=== PATIENT | male | born 1955 | race Caucasian/White ===

== ENCOUNTER 2016-09-30 11:04 | Emergency (ER) | payer BC ==
[2016-09-30 12:54] VITALS: BP 143/87
--- NOTE | 2016-09-30 13:08 | UC ---
Hand/Wrist HPI - HPI Summary HPI Summary: Was walking behind [employer] trailer one month ago when apolonia popped it into gear, suddenly moving machine into pt's R upheld fist. Since then had pain and swelling in R 5th knuckle. Has not been evaluated for this injury prior to today. - History Of Current Complaint Chief Complaint: UCUpperExtremity Stated Complaint: HAND COMPLAINT Time Seen by Provider: 09/30/16 12:52 Hx Obtained From: Patient ?: No Onset/Duration: Sudden Onset Severity Initially: Moderate Severity Currently: Mild Character Of Pain: Dull, Aching, Stiffness Aggravating Factor(s): Movement, Other - shaking hands Alleviating: Rest Associated Signs And Symptoms: Positive: Swelling Related History: Dominant Hand Right - Allergies/Home Medications Allergies/Adverse Reactions: Allergies Allergy/AdvReac Type Severity Reaction Status Date / Time Penicillins Allergy Hives Verified 09/30/16 12:54 PMH/Surg Hx/FS Hx/Imm Hx Endocrine History Of: Denies: Diabetes, Thyroid Disease Cardiovascular History Of: Denies: Cardiac Disorders, Hypertension Respiratory History Of: Denies: COPD, Asthma GI/ History Of: Reports: Kidney Stones Denies: Ulcer - Surgical History Surgical History: Yes Surgery Procedure, Year, and Place: right elbow surgery- Late - Family History Known Family History: Positive: Hypertension - Social History Lives: With Family Alcohol Use: None Substance Use Type: None Smoking Status (MU): Never Smoked Tobacco - Immunization History Most Recent Influenza Vaccination: none Most Recent Tetanus Shot: apr 2014 Most Recent Pneumonia Vaccination: none Review of Systems Constitutional: Negative Skin: Negative Eyes: Negative ENT: Negative Respiratory: Negative Cardiovascular: Negative Gastrointestinal: Negative Genitourinary: Negative Motor: Negative Neurovascular: Negative Musculoskeletal: Decreased ROM, Edema, Other: - tender R 5th MCP Neurological: Negative Psychological: Negative All Other Systems Reviewed And Are Negative: Yes Physical Exam Triage Information Reviewed: Yes Appearance: Well-Appearing, No Pain Distress, Well-Nourished Vital Signs: Initial Vital Signs Temp 98.1 F 09/30/16 12:48 Pulse 73 09/30/16 12:48 Resp 20 09/30/16 12:48 BP 143/87 09/30/16 12:48 Pulse Ox 99 09/30/16 12:48 Vital Signs Reviewed: Yes Eye Exam: Normal Eyes: Positive: Conjunctiva Clear ENT Exam: Normal ENT: Positive: Normal ENT inspection, Hearing grossly normal, Pharynx normal, TMs normal Dental Exam: Normal Neck exam: Normal Neck: Positive: Supple, Nontender Respiratory Exam: Normal Respiratory: Positive: Chest non-tender, Lungs clear, Normal breath sounds, No respiratory distress, No accessory muscle use Cardiovascular Exam: Normal Cardiovascular: Positive: RRR, No Murmur Musculoskeletal: Positive: ROM Limited @ - R interventional radiology rn, Other: - tender, mild swelling over R 5th MCP Neurological Exam: Normal Neurological: Positive: Alert Psychological Exam: Normal Skin Exam: Normal Hand/Wrist Course/Dx - Differential Dx/Diagnosis Provider Diagnoses: R 5th MCP sprain. Elevated blood pressure due to pain Discharge - Discharge Plan Condition: Stable Disposition: HOME Patient Education Materials: Finger Sprain (ED) Referrals: Jermaine Johnson MD [Primary Care Provider] - Guillermo Mckeon MD [Medical Doctor] - 1 Week Additional Instructions: Avoid activities that cause pain. Please follow up with an orthopedist to determine if you need further treatment like physical therapy or surgery.
--- NOTE | 2016-09-30 13:21 | RAD ---
INDICATION: Trauma to right hand 4 months ago. Pain COMPARISON: None TECHNIQUE: AP and lateral views were obtained. FINDINGS: There is no acute bony change. There is apparent periarticular erosive change about the fourth and fifth metacarpals at the MCP joints. An inflammatory arthropathy to include gout is a differential consideration in the appropriate clinical setting. There is also underlying osteoarthritis with interphalangeal and metacarpophalangeal joint space narrowing.. IMPRESSION: NO ACUTE BONY FINDINGS. UNDERLYING OSTEOARTHRITIS WITH POSSIBLE INFLAMMATORY ARTHROPATHY.
== END 2016-09-30 13:34 | disposition home or self-care (01) ==
LOC: UCEAST 11:04
DX: S63.656A Sprain of metacarpophalangeal joint of right little finger, initial encounter (principal); R03.0 Elevated blood-pressure reading, without diagnosis of hypertension; R52 Pain, unspecified; W22.8XXA Striking against or struck by other objects, initial encounter; Z88.0 Allergy status to penicillin; Z87.442 Personal history of urinary calculi
CPT/HCPCS: 99212; G0463

== ENCOUNTER 2018-12-04 15:40 | Emergency (ER) | payer MEDICARE ==
[2018-12-04 16:29] VITALS: BP 126/89
--- NOTE | 2018-12-04 16:54 | UC ---
Lower Extremity/Ankle HPI - HPI Summary HPI Summary: 63 yo male heard a pop right lat foot getting in a boat hurts to ambulate occurred yesterday - History of Current Complaint Chief Complaint: UCLowerExtremity Stated Complaint: FOOT PAIN Time Seen by Provider: 12/04/18 16:30 Hx Obtained From: Patient Onset/Duration: Sudden Onset, Lasting Hours Severity Initially: Moderate Severity Currently: Moderate Pain Intensity: 7 - with wt bearing Pain Scale Used: 0-10 Numeric Aggravating Factor(s): Standing, Ambulation Alleviating Factor(s): Rest Able to Bear Weight: Yes Feet (Multiple View): 1 - tender and slightly swollen here - Allergies/Home Medications Allergies/Adverse Reactions: Allergies Allergy/AdvReac Type Severity Reaction Status Date / Time Penicillins Allergy Hives Verified 12/04/18 16:30 PMH/Surg Hx/FS Hx/Imm Hx Previously Healthy: Yes - Surgical History Surgical History: Yes Surgery Procedure, Year, and Place: right elbow surgery- Late . severed quad tendon repair 2017 - Family History Known Family History: Positive: Hypertension - Social History Alcohol Use: None Substance Use Type: None Smoking Status (MU): Never Smoked Tobacco - Immunization History Most Recent Influenza Vaccination: none Most Recent Tetanus Shot: apr 2014 Most Recent Pneumonia Vaccination: none Review of Systems All Other Systems Reviewed And Are Negative: Yes Constitutional: Positive: Negative Skin: Positive: Negative Eyes: Positive: Negative ENT: Positive: Negative Respiratory: Positive: Negative Cardiovascular: Positive: Negative Gastrointestinal: Positive: Negative Genitourinary: Positive: Negative Motor: Positive: Negative Neurovascular: Positive: Negative Musculoskeletal: Positive: Arthralgia - R foot Neurological: Positive: Negative Psychological: Positive: Negative Physical Exam Triage Information Reviewed: Yes Appearance: Well-Appearing, No Pain Distress, Well-Nourished Vital Signs: Initial Vital Signs Temp 98.3 F 12/04/18 16:21 Pulse 98 12/04/18 16:21 Resp 12 12/04/18 16:21 BP 126/89 12/04/18 16:21 Pulse Ox 98 12/04/18 16:21 Vital Signs Reviewed: Yes Eyes: Positive: Conjunctiva Clear ENT: Positive: Hearing grossly normal. Negative: Nasal congestion, Nasal drainage Neck: Positive: Supple, Nontender Respiratory: Positive: Lungs clear, Normal breath sounds, No respiratory distress, No accessory muscle use Cardiovascular: Positive: RRR, No Murmur Musculoskeletal: Positive: ROM Intact, Edema @ - and tenderness near base of 5th Neurological: Positive: Alert, Muscle Tone Normal Psychological Exam: Normal Skin Exam: Normal Lower Extremity Course/Dx - Differential Dx/Diagnosis Provider Diagnosis: Right foot sprain Discharge - Sign-Out/Discharge Documenting (check all that apply): Patient Departure All imaging exams completed and their final reports reviewed: Yes - Discharge Plan Condition: Stable Disposition: HOME Patient Education Materials: Foot Sprain (ED), Post Surgical Shoe (ED) Referrals: Jermaine Johnson MD [Primary Care Provider] - Additional Instructions: see your orthopedist in 1-2 weeks if not better ice ibuprofen - Billing Disposition and Condition Condition: STABLE Disposition: Home
== END 2018-12-04 17:40 | disposition home or self-care (01) ==
LOC: UCEAST 15:40
DX: S93.601A Unspecified sprain of right foot, initial encounter (principal); X50.9XXA Other and unspecified overexertion or strenuous movements or postures, initial encounter; Y92.9 Unspecified place or not applicable; Z88.0 Allergy status to penicillin
CPT/HCPCS: 99211; G0463

== ENCOUNTER 2019-02-04 14:18 | Emergency (ER) | payer MEDICARE ==
[2019-02-04] MEDS ORDERED: Ketorolac INJ* 30 MG/ML 1 ML VIAL IV ONE (14:33)
[2019-02-04] MEDS ORDERED: Ondansetron INJ* 2 MG/ML VIAL IV ONE (14:34)
[2019-02-04] MEDS ORDERED: Morphine 4 MG/ML VIAL (1 ml) 4 MG/ML VIAL IV ONE (14:34)
[2019-02-04 14:54] LABS: ABS Basophils 0.1 10^3/ul (0-0.2); ABS Eosinophils 0.1 10^3/ul (0-0.6); ABS Lymphocytes 2.6 10^3/ul (1.0-4.8); ABS Monocytes 0.8 10^3/ul (0-0.8); ABS Neutrophils 7.2 10^3/ul (1.5-7.7); Eosinophil % 0.5 %; Hematocrit 46 % (42-52); Hemoglobin 15.3 g/dL (14.0-18.0); Lymphocyte % 23.9 %; Mean Corpuscular HGB Conc 34 g/dL (31-36); Mean Corpuscular Hemoglobin 31 pg (27-31); Mean Corpuscular Volume 93 fL (80-94); Mean Platelet Volume 8.4 fL (7.4-10.4); Platelet Count 255 10^3/uL (150-450); Red Blood Count 4.92 10^6 /uL (4.18-5.48); Red Cell Distribution Width 14 % (10-15); White Blood Count 10.7 10^3/uL (3.5-10.8)
[2019-02-04] MEDS ORDERED: NS 0.9% 1000 ML** 1,000 ML IV ONE (15:01)
[2019-02-04 15:04] LABS: Urine Appearance Clear; Urine Bacteria Absent (Absent); Urine Bilirubin Negative (Negative); Urine Blood 2+ (Negative); Urine Color Amber; Urine Glucose Negative (Negative); Urine Ketones Negative (Negative); Urine Nitrite Negative (Negative); Urine Protein Negative (Negative); Urine Red Blood Cell 2+(6-10/hpf) (Absent); Urine Specific Gravity 1.026 (1.010-1.030); Urine Urobilinogen Negative (Negative); Urine White Blood Cell Trace(0-5/hpf) (Absent)
[2019-02-04 15:09] LABS: Albumin 4.1 g/dL (3.2-5.2); Albumin/Globulin Ratio 1.6 (1-3); BUN/Creatinine Ratio 17.6 (8-20); C Reactive Protein 1.88 mg/L (<8.01); Calcium 8.5 mg/dL (8.6-10.3); EGFR African American 88.7 (>60); EGFR Non-African American 73.3 (>60); Globulin 2.6 g/dL (2-4); Total Bilirubin 0.5 mg/dL (0.2-1.0); Total Protein 6.7 g/dL (6.4-8.9)
[2019-02-04 15:53] VITALS: BP 137/73
--- NOTE | 2019-02-05 13:01 | ED ---
Abdominal Pain/Male - HPI Summary HPI Summary: This patient is a 63-year-old male with history of kidney stones, ureteroscopy and stent placement 4 years ago to the left flank now presenting to the ED with pain to the right flank, acute onset approximately 45 minutes ago, severe 10/ 10. Pain is into the right flank radiating around into the RLQ, denying any urinary symptoms. He denies any hematuria. Pain is worst of life. Denies any chest pain, shortness of breath, headache or other symptoms. On arrival into the ED, he is tearful and writhing in pain. Requesting pain medications on arrival. Dr. Flood is urologist. - History of Current Complaint Chief Complaint: EDFlankPain Stated Complaint: FLANK PAIN PER PT Time Seen by Provider: 02/04/19 14:29 Hx Obtained From: Patient Onset/Duration: Sudden Onset Timing: Constant Severity Initially: Severe Severity Currently: Severe Pain Intensity: 0 Pain Scale Used: 0-10 Numeric Location: Flank Radiates: Yes Radiates to: RLQ Character: Sharp, Cramping Aggravating Factor(s): Nothing Alleviating Factor(s): Nothing Associated Signs And Symptoms: Positive: Negative - Risk Factors Testicular Torsion: Negative Cardiac Risk Factors: Negative - Allergies/Home Medications Allergies/Adverse Reactions: Allergies Allergy/AdvReac Type Severity Reaction Status Date / Time Penicillins Allergy Hives Verified 12/04/18 16:30 Home Medications: Home Medications Saw [place] Fruit [Saw [place]] 450 mg PO DAILY 02/04/19 [History Confirmed ] PMH/Surg Hx/FS Hx/Imm Hx Previously Healthy: Yes Endocrine/Hematology History: Denies: Hx Diabetes, Hx Thyroid Disease Cardiovascular History: Denies: Hx Hypertension Respiratory History: Denies: Hx Asthma, Hx Chronic Obstructive Pulmonary Disease (COPD) GI History: Denies: Hx Ulcer History: Reports: Hx Kidney Stones Sensory History: Reports: Hx Contacts or Glasses - for driving/reading Opthamlomology History: Reports: Hx Contacts or Glasses - for driving/reading - Surgical History Surgery Procedure, Year, and Place: right elbow surgery- Late . severed quad tendon repair 2017 Hx Anesthesia Reactions: No - Immunization History Hx Pertussis Vaccination: No Immunizations Up to Date: Yes Infectious Disease History: No Infectious Disease History: Reports: Traveled Outside the [place] in Last 30 Days Denies: Hx Hepatitis, Hx Human Immunodeficiency Virus (HIV) - Family History Known Family History: Positive: Hypertension - Social History Occupation: Employed Full-time Lives: With Family Alcohol Use: Rare Hx Substance Use: No Substance Use Type: Reports: None Hx Tobacco Use: No Smoking Status (MU): Never Smoked Tobacco Review of Systems Constitutional: Negative Negative: Fever, Chills, Fatigue, Skin Diaphoresis Negative: Palpitations, Chest Pain Negative: Shortness Of Breath, Cough Positive: Abdominal Pain, Nausea. Negative: Vomiting, Diarrhea Genitourinary: Negative Positive: no symptoms reported, see HPI Negative: Arthralgia, Myalgia Skin: Negative Neurological: Negative All Other Systems Reviewed And Are Negative: Yes Physical Exam Triage Information Reviewed: Yes Vital Signs On Initial Exam: Initial Vitals Temp Pulse Resp BP Pulse Ox 96.1 F 50 18 160/80 100 02/04/19 14:23 02/04/19 14:23 02/04/19 14:23 02/04/19 14:23 02/04/19 14:23 Vital Signs Reviewed: Yes Appearance: Positive: Well-Nourished, Pain Distress Skin: Positive: Warm, Skin Color Reflects Adequate Perfusion Head/Face: Positive: Normal Head/Face Inspection Eyes: Positive: EOMI, OLU, Conjunctiva Clear Neck: Positive: Supple, No Lymphadenopathy Respiratory/Lung Sounds: Positive: Clear to Auscultation, Breath Sounds Present Cardiovascular: Positive: RRR, Pulses are Symmetrical in both Upper and Lower Extremities Abdomen Description: Positive: Nontender, Soft, CVA Tenderness (R) Bowel Sounds: Positive: Present Musculoskeletal: Positive: Normal, Strength/ROM Intact Neurological: Positive: Speech Normal Psychiatric: Positive: Affect/Mood Appropriate Diagnostics - Vital Signs Vital Signs Temp Pulse Resp BP Pulse Ox 02/04/19 15:53 98.5 F 65 16 137/73 97 02/04/19 14:48 16 02/04/19 14:23 96.1 F 50 18 160/80 100 - Laboratory Lab Results: Lab Results 02/04/19 02/04/19 02/04/19 Range/Units 14:26 14:43 14:43 WBC 10.7 (3.5-10.8) 10^3/uL RBC 4.92 (4.18-5.48) 10^6 /uL Hgb 15.3 (14.0-18.0) g/dL Hct 46 (42-52) % MCV 93 (80-94) fL MCH 31 (27-31) pg MCHC 34 (31-36) g/dL RDW 14 (10-15) % Plt Count 255 (150-450) 10^3/uL MPV 8.4 (7.4-10.4) fL Neut % (Auto) 67.0 % Lymph % (Auto) 23.9 % [place] % (Auto) 7.9 % Eos % (Auto) 0.5 % Baso % (Auto) 0.7 % Absolute Neuts (auto) 7.2 (1.5-7.7) 10^3/ul Absolute Lymphs (auto) 2.6 (1.0-4.8) 10^3/ul Absolute Monos (auto) 0.8 (0-0.8) 10^3/ul Absolute Eos (auto) 0.1 (0-0.6) 10^3/ul Absolute Basos (auto) 0.1 (0-0.2) 10^3/ul Absolute Nucleated RBC 0.0 10^3/ul Nucleated RBC % 0.0 Sodium 139 (135-145) mmol/L Potassium 4.0 (3.5-5.0) mmol/L Chloride 108 (101-111) mmol/L Carbon Dioxide 27 (22-32) mmol/L Anion Gap 4 (2-11) mmol/L BUN 18 (6-24) mg/dL Creatinine 1.02 (0.67-1.17) mg/dL Est GFR ( Amer) 88.7 (>60) Est GFR (Non-Af Amer) 73.3 (>60) BUN/Creatinine Ratio 17.6 (8-20) Glucose 162 H (70-100) mg/dL Lactic Acid (0.5-2.0) mmol/L Calcium 8.5 L (8.6-10.3) mg/dL Magnesium 2.0 (1.9-2.7) mg/dL Total Bilirubin 0.50 (0.2-1.0) mg/dL AST 22 (13-39) U/L ALT 19 (7-52) U/L Alkaline Phosphatase 74 (34-104) U/L C-Reactive Protein 1.88 (<8.01) mg/L Total Protein 6.7 (6.4-8.9) g/dL Albumin 4.1 (3.2-5.2) g/dL Globulin 2.6 (2-4) g/dL Albumin/Globulin Ratio 1.6 (1-3) Lipase 30 (11.0-82.0) U/L Urine Color Ese Urine Appearance Clear Urine pH 6.0 (5-9) Ur Specific [place] 1.026 (1.010-1.030) Urine Protein Negative (Negative) Urine Ketones Negative (Negative) Urine Blood 2+ A (Negative) Urine Nitrate Negative (Negative) Urine Bilirubin Negative (Negative) Urine Urobilinogen Negative (Negative) Ur Leukocyte Esterase Negative (Negative) Urine WBC (Auto) Trace(0-5/hpf) (Absent) Urine RBC (Auto) 2+(6-10/hpf) A (Absent) Urine Bacteria Absent (Absent) Urine Glucose Negative (Negative) 02/04/19 Range/Units 14:43 WBC (3.5-10.8) 10^3/uL RBC (4.18-5.48) 10^6 /uL Hgb (14.0-18.0) g/dL Hct (42-52) % MCV (80-94) fL MCH (27-31) pg MCHC (31-36) g/dL RDW (10-15) % Plt Count (150-450) 10^3/uL MPV (7.4-10.4) fL Neut % (Auto) % Lymph % (Auto) % [place] % (Auto) % Eos % (Auto) % Baso % (Auto) % Absolute Neuts (auto) (1.5-7.7) 10^3/ul Absolute Lymphs (auto) (1.0-4.8) 10^3/ul Absolute Monos (auto) (0-0.8) 10^3/ul Absolute Eos (auto) (0-0.6) 10^3/ul Absolute Basos (auto) (0-0.2) 10^3/ul Absolute Nucleated RBC 10^3/ul Nucleated RBC % Sodium (135-145) mmol/L Potassium (3.5-5.0) mmol/L Chloride (101-111) mmol/L Carbon Dioxide (22-32) mmol/L Anion Gap (2-11) mmol/L BUN (6-24) mg/dL Creatinine (0.67-1.17) mg/dL Est GFR ( Amer) (>60) Est GFR (Non-Af Amer) (>60) BUN/Creatinine Ratio (8-20) Glucose (70-100) mg/dL Lactic Acid 1.6 (0.5-2.0) mmol/L Calcium (8.6-10.3) mg/dL Magnesium (1.9-2.7) mg/dL Total Bilirubin (0.2-1.0) mg/dL AST (13-39) U/L ALT (7-52) U/L Alkaline Phosphatase (34-104) U/L C-Reactive Protein (<8.01) mg/L Total Protein (6.4-8.9) g/dL Albumin (3.2-5.2) g/dL Globulin (2-4) g/dL Albumin/Globulin Ratio (1-3) Lipase (11.0-82.0) U/L Urine Color Urine Appearance Urine pH (5-9) Ur Specific [place] (1.010-1.030) Urine Protein (Negative) Urine Ketones (Negative) Urine Blood (Negative) Urine Nitrate (Negative) Urine Bilirubin (Negative) Urine Urobilinogen (Negative) Ur Leukocyte Esterase (Negative) Urine WBC (Auto) (Absent) Urine RBC (Auto) (Absent) Urine Bacteria (Absent) Urine Glucose (Negative) Result Diagrams: 02/04/19 14:43 02/04/19 14:43 Lab Statement: Any lab studies that have been ordered have been reviewed, and results considered in the medical decision making process. Abdominal Pain Male Course/Dx - Course Course Of Treatment: Course of treatment, the patient's evaluated for right- sided flank and abdominal pain. On arrival in the ED, patient is given morphine , Toradol and Zofran. He was also given fluids.Labs obtained and are unremarkable. 2+ blood in the urine. CT abdomen and pelvis obtained: Right hydronephrosis and hydroureter with a 0.5 cm calculus in the distal right ureter. The gallbladder demonstrate calcified gallstones. Discussed case with Dr. Jones who recommends straining the urine, pain medication and f/u in office. - Diagnoses Differential Diagnosis/HQI/PQRI: Renal Colic Provider Diagnoses: Kidney stones - Provider Notifications Discussed Care Of Patient With: Rey Jones Instructed by Provider To: Have Pt Call For Appt. Discharge ED - Sign-Out/Discharge Documenting (check all that apply): Patient Departure Patient Received Moderate/Deep Sedation with Procedure: No - Discharge Plan Condition: Stable Disposition: HOME Prescriptions: oxyCODONE TAB* [Roxycodone TAB 5 mg*] 5 mg PO Q4H PRN #15 tab MDD 6 PRN Reason: Pain - Mild Patient Education Materials: Kidney Stones (ED) Referrals: Jermaine Johnson MD [Primary Care Provider] - Additional Instructions: Call Dr. Flood's office in the morning for a follow up If you continue to have pain - return to the ED or follow-up with urology Pain medication was given to you, uses only as needed Strain urine until passage of stone - Billing Disposition and Condition Condition: STABLE Disposition: Home
== END 2019-02-04 15:45 | disposition home or self-care (01) ==
LOC: ED 14:18
DX: N13.2 Hydronephrosis with renal and ureteral calculous obstruction (principal); Z88.0 Allergy status to penicillin; Z79.899 Other long term (current) drug therapy
CPT/HCPCS: 36415; 74176; 80053; 81003; 81015; 83605; 83690; 83735; 85025; 86140; 87086; 96361; 96374; 96375; 99283; J1885; J2270; J2405

== ENCOUNTER 2019-05-31 10:44 | Emergency (ER) | payer MEDICARE ==
--- OUTSIDE RECORDS SUMMARY | 2019-05-31 11:18 | XMS REPORT | Continuity of Care Document ---
:1955 External Reference #:[id number] Author Name Tommy Dorsey M.D. (transmitted by agent of provider Jannette Garcia) Address [address] [place] [id number] Care Team Providers Name Role Phone Eliel Johnson M.D. Care Team Information Development Analyst [phone] Jermanie Johnson M.D. 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 Social History Type Date Description Comments Sex Unknown ETOH Use Rarely consumes alcohol Tobacco Use Reviewed: 04/02/19 Patient has never smoked Smoking Status Reviewed: 04/02/19 Patient has never smoked Allergies, Adverse Reactions, Alerts Active Allergies Reaction Severity Comments Date Penicillins hives 02/16/2015 Inactive Allergies NKDA 02/16/2015 Medications Active Medications SIG Qnty Indications Ordering Provider Date Vitamin C qd Unknown Vitamin E qd Unknown Vitamin D qd Unknown Vitamin B-12 qd Unknown Fish Oil qd Unknown Glucosamine-Chondroitin qd Unknown Coq-10 qd Unknown Immunizations Description No Information Available Vital Signs Date Vital Result Comment 04/02/2019 1:01pm BP Systolic Right Arm 140 mmHg BP Diastolic Right Arm 80 mmHg 09/23/2017 2:09pm BP Systolic Left Arm 130 mmHg BP Diastolic Left Arm 80 mmHg Height 69 inches 5'9" Weight 240.00 lb Weight 108.864 kg BMI (Body Mass Index) 35.4 kg/m2 Results Test Acquired Date Facility Test Result H/L Range Note Xray 04/02/2019 Main Office Arterial Ultrasound Lower <pending> [phone] Extremity Right Procedures Date Code Description Status 04/02/2019 33510 Duplex Scan Lower Extremity, Follow-Up Or Limited Completed Medical Devices Description No Information Available Encounters Description No Information Available Assessments Date Code Description Provider 04/02/2019 I72.4 Aneurysm of artery of lower extremity Vascular Lab Plan of Treatment 04/02/2019 - Tommy Dorsey M.D.New Xrays:Arterial Ultrasound Lower Extremity Right, Ordered: 04/02/19Follow up:2 YEAR OV/US/ LE ARTERIAL RIGHT / Functional Status Description No Information Available Mental Status Description No Information Available Referrals Description No Information Available
--- NOTE | 2019-05-31 12:00 | UC ---
Ear Complaint HPI - HPI Summary HPI Summary: 63-year-old male presents with complaints of right ear pain with diminished hearing 2 weeks. States he noted that the ear canal was red and inflamed. He has been trying to treat at home by using an awmp-[id number]-jdrxaru eardrop and irrigating the ear canal. Denies fever, chills, URI symptoms, tinnitus, vertigo , or ear drainage. - History of Current Complaint Chief Complaint: UCEar Stated Complaint: EAR PAIN Time Seen by Provider: 05/31/19 11:30 Hx Obtained From: Patient Pain Intensity: 1 - Allergies/Home Medications Allergies/Adverse Reactions: Allergies Allergy/AdvReac Type Severity Reaction Status Date / Time Penicillins Allergy Hives Verified 05/31/19 11:26 PMH/Surg Hx/FS Hx/Imm Hx Previously Healthy: Yes - Denies significant PMH - Surgical History Surgical History: Yes Surgery Procedure, Year, and Place: right elbow surgery- Late s. severed quad tendon repair 2016 - Family History Known Family History: Positive: Hypertension - Social History Occupation: Employed Full-time Lives: With Family Alcohol Use: Rare Substance Use Type: None Smoking Status (MU): Never Smoked Tobacco - Immunization History Most Recent Influenza Vaccination: none Most Recent Tetanus Shot: apr 2014 Most Recent Pneumonia Vaccination: none Review of Systems All Other Systems Reviewed And Are Negative: Yes Constitutional: Negative: Fever, Chills Eyes: Negative: Drainage, Eye Redness ENT: Positive: Ear Ache. Negative: Sore Throat, Nasal Discharge, Sinus Congestion, Sinus Pain/Tenderness Respiratory: Negative: Cough Cardiovascular: Positive: Negative Gastrointestinal: Positive: Negative Genitourinary: Positive: Negative Musculoskeletal: Positive: Negative Neurological: Positive: Negative Is Patient Immunocompromised?: No Physical Exam - Summary Physical Exam Summary: GENERAL APPEARANCE: Alert and cooperative obese adult male who appears to be in no acute distress. EYES: Conjunctiva clear. No drainage. EARS: Left external auditory canal and tympanic membranes clear. Right external auditory canal erythematous and inflamed. TM partially obscured but no erythema noted. NOSE: No nasal discharge. THROAT: Pharynx normal No tonsilar inflammation, swelling, exudate, or lesions. Uvula midline. NECK: Neck supple, non-tender without lymphadenopathy. CARDIAC: Normal S1 and S2. No S3, S4 or murmurs. Rhythm is regular. There is no peripheral edema, cyanosis or pallor. Extremities are warm and well perfused. Capillary refill is less than 2 seconds. Peripheral pulses intact. LUNGS: Clear to auscultation without rales, rhonchi, wheezing or diminished breath sounds. ABDOMEN: Positive bowel sounds. Soft, nondistended, nontender. No guarding or rebound. No masses or hepatosplenomegally. MUSKULOSKELETAL: ROM intact to all extremities. No joint erythema or tenderness. Normal muscular development. Normal gait. SKIN: Skin normal color, texture and turgor with no lesions or eruptions. Triage Information Reviewed: Yes Vital Signs: Initial Vital Signs Temp 97.3 F 05/31/19 11:23 Pulse 73 05/31/19 11:23 Resp 18 05/31/19 11:23 BP 151/96 05/31/19 11:23 Pulse Ox 98 05/31/19 11:23 Vital Signs Reviewed: Yes Ear Complaint Course/Dx - Course Course Of Treatment: 63-year-old male presents with complaints of right ear pain with diminished hearing 2 weeks. States he noted that the ear canal was red and inflamed. He has been trying to treat at home by using an afpy-iit-axaokez eardrop and irrigating the ear canal. Denies fever, chills, URI symptoms, tinnitus, vertigo , or ear drainage. Afebrile. Hypertensive his vital signs stable. On exam it was noted that the patient's right external auditory canal erythematous and inflamed. TM partially obscured but no erythema noted. Remainder of exam was unremarkable. Will treat for a right otitis externa with ciprofloxacin dexamethasone otic drops 4 drops into the affected here twice daily 7 days. He is to follow-up with his primary care provider in 5-7 days if symptoms are not improving. Anticipatory guidance and warning symptoms were reviewed with the patient. Verbalizes understanding and agrees with plan of care. - Differential Dx/Diagnosis Differential Diagnosis/HQI/PQRI: Cerumen Impaction, Otitis Externa, Otitis Media , Perforated TM Provider Diagnosis: Right otitis externa Discharge ED - Sign-Out/Discharge Documenting (check all that apply): Patient Departure All imaging exams completed and their final reports reviewed: No Studies - Discharge Plan Condition: Stable Disposition: HOME Prescriptions: Ciproflox/Dexameth OTIC.SUSP* [Ciprodex OTIC.SUSP*] 4 drop .SEE ORDER BID 7 Days #1 drop Patient Education Materials: Otitis Externa (ED) Referrals: Jermaine Johnson MD [Primary Care Provider] - 5 Days (If no improvement of symptoms.) Additional Instructions: You appear to have an infection of the right ear canal. We will start you on an antibiotic ear drop with a steroid to treat the infection and reduce swelling. Start ciprofloxacindexamethasone otic drops. Instill 4 drops into the affected ear twice daily for 7 days. You may take [id number] acetaminophen (Tylenol) or ibuprofen (Advil, Motrin) according to directions as needed for any pain. Follow-up with your primary care provider in 5-7 days if symptoms are not improving. Seek immediate medical attention if you develop a fever greater than 100.5 F, have severe ear pain, blood or drainage from the ear, or any worsening of symptoms. - Billing Disposition and Condition Condition: STABLE Disposition: Home - Attestation Statements Provider Attestation: I was available for consult. This patient was seen by the RIGO. The patient was not presented to, seen by, or examined by me. -Rupali
[2019-05-31 12:14] VITALS: BP 151/96
== END 2019-05-31 12:10 | disposition home or self-care (01) ==
LOC: UCEAST 10:44
DX: H60.91 Unspecified otitis externa, right ear (principal); I10 Essential (primary) hypertension; E66.9 Obesity, unspecified; Z88.0 Allergy status to penicillin
CPT/HCPCS: 99212; G0463